=== PATIENT | female | born 1950 | race Caucasian/White ===

== ENCOUNTER 2018-02-27 19:47 | Emergency (ER) | payer MEDICARE, OTHER ==
[~2018-02-27] VITALS: Ht 165.1 cm; Wt 108.3 kg
[2018-02-27] MEDS ORDERED: PROPARACAINE/FLUORESCEIN ophthalmic drops 5ml bottle RIGHTEYE ONE (20:20)
[2018-02-27] MEDS ORDERED: erythromycin ophthalmic ointment 1gm tube RIGHTEYE ONE (21:55)
[2018-02-27] MEDS ORDERED: ERYT1OIN6 RIGHTEYE (22:06)
[2018-02-27 22:15] VITALS: BP 177/103
== END 2018-02-27 22:18 | disposition home or self-care (01) ==
LOC: ER 19:47
DX: T15.81XA Foreign body in other and multiple parts of external eye, right eye, initial encounter (principal); H11.31 Conjunctival hemorrhage, right eye; I10 Essential (primary) hypertension; Z88.8 Allergy status to other drugs, medicaments and biological substances; Z91.048 Other nonmedicinal substance allergy status; W45.8XXA Other foreign body or object entering through skin, initial encounter; Y93.89 Activity, other specified; Y92.89 Other specified places as the place of occurrence of the external cause; Y99.8 Other external cause status
CPT/HCPCS: 99284